=== PATIENT | male | born 1960 | race Hispanic/Latino ===

== ENCOUNTER 2018-03-23 06:33 | Emergency (ER) | payer SELFPAY | END 2018-03-23 09:00 | disposition home or self-care (01) | LOC: EDH 06:33 | DX: R51 Headache (principal) | CPT/HCPCS: 70450 ==

== ENCOUNTER 2022-09-12 01:00 | Emergency (ER) | payer BC ==
[~2022-09-12] VITALS: Ht 167.6 cm; Wt 99.8 kg
[2022-09-12 01:29] LABS: BASOPHILS % (AUTO) 0.2 % (0.0-5.0); EOSINOPHILS % (AUTO) 0.1 % (0.0-8.0); HEMATOCRIT 44.5 % (42-54); LYMPHOCYTES % (AUTO) 10.2 % (21.0-51.0); MEAN CORPUSCULAR HEMOGLOBIN 30.7 pg (27.0-33.0); MEAN CORPUSCULAR HGB CONC 34.8 g/dL (32.0-36.0); MEAN CORPUSCULAR VOLUME 88.1 fL (79-99); MONOCYTES % (AUTO) 4.8 % (3.0-13.0); NEUTROPHILS % (AUTO) 84.1 % (40.0-77.0); PLATELET COUNT (AUTO) 201 K/uL (130-400); RED BLOOD CELL COUNT(AUTO) 5.05 MIL/uL (4.50-6.20); RED CELL DISTRIBUTION WIDTH 12.9 % (11.0-15.5); WHITE BLOOD COUNT (AUTO) 14.4 K/uL (4.8-10.8)
[2022-09-12] MEDS ORDERED: MECLIZINE HCL 25 MG TABLET PO ONE (01:30)
[2022-09-12] MEDS ORDERED: ONDANSETRON 4MG INJ IVP ONE (01:30)
[2022-09-12] MEDS ORDERED: MECL-160 PO (01:32)
[2022-09-12 01:37] LABS: POTASSIUM 3.6 mmol/L (3.5-5.1)
[2022-09-12 01:41] LABS: ALBUMIN 3.7 g/dL (3.5-5.0); TOTAL PROTEIN, SERUM 6.9 g/dL (6.0-8.3)
[2022-09-12 03:24] VITALS: BP 116/50
== END 2022-09-12 03:55 | disposition home or self-care (01) ==
LOC: EDH 01:00
DX: H81.10 Benign paroxysmal vertigo, unspecified ear (principal); Z20.822 Contact with and (suspected) exposure to COVID-19
CPT/HCPCS: 99284; 96374; 87635; 84484; 80053; 83690; 85025; 87804 ×2; 36415; 93005; C9803; J2405